=== PATIENT | male | born 1990 | race Caucasian/White ===

== ENCOUNTER 2019-02-02 08:01 | Emergency (ER) | payer BC, OTHER ==
[2019-02-02] MEDS ORDERED: SODIUM CHLORIDE 0.9% 1000ML 1,000 ML ONE (08:04)
[2019-02-02] MEDS ORDERED: NALOXONE HCL INJ 1 MG/ML SYG ONE (08:05)
[2019-02-02] MEDS ORDERED: NALOXONE HCL INJ 1 MG/ML SYG IV ONE (08:06)
[2019-02-02] MEDS ORDERED: SODIUM CHLORIDE 0.9% 1000ML 1,000 ML IVS ONE ×3 (08:08→09:34)
[2019-02-02 08:13] VITALS: TEMP 96.8
--- NOTE | 2019-02-02 08:44 | ED.PDOC ---
History of Present Illness - General Chief Complaint: Drug or Alcohol Abuse Stated Complaint: overdose Time Seen by Provider: 02/02/19 08:06 Source: patient, family Exam Limitations: no limitations - History of Present Illness Initial Comments: THIS PATIENT HAS BEEN BATTLING DRUG ADDICTION FOR SEVERAL YEARS. HE JUST CAME OUT OF REHABILITATION. HE HAS BEEN USING METHAMPHETAMINES FOR THE PAST THREE DAYS AND WAS UNABLE TO SLEEP. HE TOOK 8 MG OF XANAX AND INJECTED HEROIN. NOW HE ARRIVES WITH MODERATE AGITATION. THE MOTHER IS AT THE BEDSIDE. Severity: moderate Worsening Factors: nothing Associated Symptoms: denies symptoms Allergies/Adverse Reactions: Allergies NO KNOWN ALLERGY Allergy (Verified 02/02/19 08:12) Home Medications: Ambulatory Orders NK 02/02/19 Review of Systems - Review of Systems Constitutional: States: other - AGITATION EENTM: States: no symptoms reported Respiratory: States: no symptoms reported Cardiology: States: no symptoms reported Gastrointestinal/Abdominal: States: no symptoms reported Genitourinary: States: no symptoms reported Musculoskeletal: States: no symptoms reported Skin: States: no symptoms reported Neurological: States: no symptoms reported Endocrine: States: no symptoms reported Hematologic/Lymphatic: States: no symptoms reported Past Medical History (General) - Patient Medical History Hx Stroke: No Hx Congestive Heart Failure: No Hx Diabetes: No - Vaccination History Hx Influenza Vaccination: No - Social History Hx Tobacco Use: Yes Family Medical History - Family History Mother Family History: Unknown Living Status: Still Living Physical Exam - Physical Exam General Appearance: Agitated, Anxious, Restless, Well Developed, Well Nourished Eye Exam: bilateral normal Ears, Nose, Throat: hearing grossly normal, normal ENT inspection Neck: non-tender, full range of motion, supple Respiratory: lungs clear, normal breath sounds, no respiratory distress, no accessory muscle use Cardiovascular/Chest: normal peripheral pulses, tachycardia Peripheral Pulses: radial,right: 2+, radial,left: 2+ Gastrointestinal/Abdominal: normal bowel sounds, non tender, soft, no organomegaly Extremity: normal range of motion, non-tender Neurologic: no motor/sensory deficits, alert Skin Exam: normal color, warm/dry Progress - Progress Progress: 02/02/19 10:10 ekg: HR OF 122, AK INTERVAL OF 114, QRS OF 98, QTC OF 456, AXES OF 67 DEGREES. IMPRESSION; SINUS RHYTHM, NO ACUTE INJURY PATTERN. THERE ARE NO PREVIOUS TRACINGS TO COMPARE WITH. 02/02/19 10:13 02/02/19 08:15 EKG STAT 02/02/19 09:20 HIV-1/2 AB W/REFLEX EIA Stat 02/02/19 09:34 Sodium Chloride 0.9% 1000ML [Ns 1000 ml] 1,000 ml IVS ONCE 02/02/19 09:45 HEPATITIS ACUTE PROFILE, ABC Stat Laboratory Results WBC 19.1 K/mm3 (4.8-10.8) H 02/02/19 08:30 RBC 5.06 M/mm3 (4.70-6.10) 02/02/19 08:30 Hgb 14.6 gm/dL (14.0-18.0) 02/02/19 08:30 Hct 44.0 % (42.0-52.0) 02/02/19 08:30 MCV 86.9 fl (80.0-94.0) 02/02/19 08:30 MCH 28.9 pg (27.0-31.0) 02/02/19 08:30 MCHC 33.2 g/dL (33.0-37.0) 02/02/19 08:30 RDW 14.5 % (11.5-14.5) 02/02/19 08:30 Plt Count 375 K/mm3 (130-400) 02/02/19 08:30 MPV 7.2 fl (7.40-10.4) L 02/02/19 08:30 Absolute Neuts (auto) 16.10 K/uL (1.8-6.8) H 02/02/19 08:30 Absolute Lymphs (auto) 1.60 K/uL (1.0-3.4) 02/02/19 08:30 Absolute Monos (auto) 1.30 K/uL (0.2-0.8) H 02/02/19 08:30 Absolute Eos (auto) 0.00 K/uL (0.0-0.4) 02/02/19 08:30 Absolute Basos (auto) 0.10 K/uL (0.0-0.1) 02/02/19 08:30 Neutrophils % 84.4 % (42.0-78.0) H 02/02/19 08:30 Lymphocytes % 8.3 % (20.0-50.0) L 02/02/19 08:30 Monocytes % 6.9 % (2.0-9.0) 02/02/19 08:30 Eosinophils % 0.0 % (1.0-5.0) L 02/02/19 08:30 Basophils % 0.4 % (0.0-2.0) 02/02/19 08:30 Sodium 138 mmol/L (135-145) 02/02/19 08:30 Potassium 4.0 mmol/L (3.6-5.0) 02/02/19 08:30 Chloride 106 mmol/L (101-111) 02/02/19 08:30 Carbon Dioxide 19 mmol/L (21-31) L 02/02/19 08:30 Anion Gap 17.0 (12-18) 02/02/19 08:30 BUN 31 mg/dL (7-18) H 02/02/19 08:30 Creatinine 2.26 mg/dL (0.6-1.3) H 02/02/19 08:30 BUN/Creatinine Ratio 13.7 (10-20) 02/02/19 08:30 Random Glucose 103 mg/dL (70-105) 02/02/19 08:30 Serum Osmolality 282.5 mOsm/L (275-295) 02/02/19 08:30 Calcium 9.5 mg/dL (8.4-10.2) 02/02/19 08:30 Total Bilirubin 1.4 mg/dL (0.2-1.0) H 02/02/19 08:30 AST 22 IU/L (10-42) 02/02/19 08:30 ALT 15 IU/L (10-60) 02/02/19 08:30 Alkaline Phosphatase 63 IU/L (42-121) 02/02/19 08:30 Troponin I < 0.02 ng/mL (0.01-0.05) 02/02/19 08:30 Serum Total Protein 8.3 gm/dL (6.4-8.2) H 02/02/19 08:30 Albumin 4.7 g/dl (3.2-5.5) 02/02/19 08:30 Globulin 3.6 gm/dL (2.3-3.5) H 02/02/19 08:30 Albumin/Globulin Ratio 1.3 (1.1-1.9) 02/02/19 08:30 Urine Color Yellow (Yellow) 02/02/19 09:30 Urine Appearance Cloudy (Clear) 02/02/19 09:30 Urine pH 5.5 (4.5-7.8) 02/02/19 09:30 Ur Specific [place] 1.025 (1.005-1.030) 02/02/19 09:30 Urine Protein 100 mg/dL H 02/02/19 09:30 Urine Glucose (UA) Negative mg/dL (Negative) 02/02/19 09:30 Urine Ketones Trace mg/dL (NEGATIVE) 02/02/19 09:30 Urine Blood Large (Negative) H 02/02/19 09:30 Urine Nitrite Negative 02/02/19 09:30 Urine Bilirubin Small (NEGATIVE) H 02/02/19 09:30 Urine Urobilinogen 0.2 mg/dL (0.2-1.0) 02/02/19 09:30 Ur Leukocyte Esterase Negative (Negative) 02/02/19 09:30 Urine RBC 30-40 /hpf H 02/02/19 09:30 Urine WBC 0-1 /hpf 02/02/19 09:30 Ur Epithelial Cells 1-3 /hpf 02/02/19 09:30 Urine Bacteria 1+ 02/02/19 09:30 Urine Opiates Screen Positive ng/mL (2000) H 02/02/19 08:06 Urine Barbiturates Negative ng/mL (200) 02/02/19 08:06 Ur Phencyclidine Scrn Negative ng/mL (25) 02/02/19 08:06 U Amphetamin/Meth Scrn Positive ng/mL (1000) H 02/02/19 08:06 U Benzodiazepines Scrn Positive ng/mL (200) H 02/02/19 08:06 U Cocaine Metab Screen Negative ng/mL (300) 02/02/19 08:06 U Cannabinoids Screen Negative ng/mL (50) 02/02/19 08:06 02/02/19 11:11 I HAVE DISCUSSED THE CASE WITH DR. LAMBERT. HE SUGGESTS TO REPEAT THE BMP AND IF THE CREATININE IS IMPROVED THEN HE CAN BE DISCHARGED FROM THE ED. THE PATIENT HAS RECEIVED THREE LTS OF FLUIDS AND IS STILL TACHYCARDIC, MAYBE A COMBINATION OF HIS DRUGS AND VOLUME DEPLETION. 02/02/19 12:15 02/02/19 08:15 EKG STAT 02/02/19 09:20 HIV-1/2 AB W/REFLEX EIA Stat 02/02/19 09:45 HEPATITIS ACUTE PROFILE, ABC Stat Laboratory Results WBC 19.1 K/mm3 (4.8-10.8) H 02/02/19 08:30 RBC 5.06 M/mm3 (4.70-6.10) 02/02/19 08:30 Hgb 14.6 gm/dL (14.0-18.0) 02/02/19 08:30 Hct 44.0 % (42.0-52.0) 02/02/19 08:30 MCV 86.9 fl (80.0-94.0) 02/02/19 08:30 MCH 28.9 pg (27.0-31.0) 02/02/19 08:30 MCHC 33.2 g/dL (33.0-37.0) 02/02/19 08:30 RDW 14.5 % (11.5-14.5) 02/02/19 08:30 Plt Count 375 K/mm3 (130-400) 02/02/19 08:30 MPV 7.2 fl (7.40-10.4) L 02/02/19 08:30 Absolute Neuts (auto) 16.10 K/uL (1.8-6.8) H 02/02/19 08:30 Absolute Lymphs (auto) 1.60 K/uL (1.0-3.4) 02/02/19 08:30 Absolute Monos (auto) 1.30 K/uL (0.2-0.8) H 02/02/19 08:30 Absolute Eos (auto) 0.00 K/uL (0.0-0.4) 02/02/19 08:30 Absolute Basos (auto) 0.10 K/uL (0.0-0.1) 02/02/19 08:30 Neutrophils % 84.4 % (42.0-78.0) H 02/02/19 08:30 Lymphocytes % 8.3 % (20.0-50.0) L 02/02/19 08:30 Monocytes % 6.9 % (2.0-9.0) 02/02/19 08:30 Eosinophils % 0.0 % (1.0-5.0) L 02/02/19 08:30 Basophils % 0.4 % (0.0-2.0) 02/02/19 08:30 Sodium 135 mmol/L (135-145) 02/02/19 11:23 Potassium 4.3 mmol/L (3.6-5.0) 02/02/19 11:23 Chloride 108 mmol/L (101-111) 02/02/19 11:23 Carbon Dioxide 19 mmol/L (21-31) L 02/02/19 11:23 Anion Gap 12.3 (12-18) 02/02/19 11:23 BUN 30 mg/dL (7-18) H 02/02/19 11:23 Creatinine 1.56 mg/dL (0.6-1.3) H D 02/02/19 11:23 BUN/Creatinine Ratio 19.2 (10-20) 02/02/19 11:23 Random Glucose 106 mg/dL (70-105) H 02/02/19 11:23 Serum Osmolality 276.7 mOsm/L (275-295) 02/02/19 11:23 Calcium 8.6 mg/dL (8.4-10.2) 02/02/19 11:23 Total Bilirubin 1.4 mg/dL (0.2-1.0) H 02/02/19 08:30 AST 22 IU/L (10-42) 02/02/19 08:30 ALT 15 IU/L (10-60) 02/02/19 08:30 Alkaline Phosphatase 63 IU/L (42-121) 02/02/19 08:30 Troponin I < 0.02 ng/mL (0.01-0.05) 02/02/19 08:30 Serum Total Protein 8.3 gm/dL (6.4-8.2) H 02/02/19 08:30 Albumin 4.7 g/dl (3.2-5.5) 02/02/19 08:30 Globulin 3.6 gm/dL (2.3-3.5) H 02/02/19 08:30 Albumin/Globulin Ratio 1.3 (1.1-1.9) 02/02/19 08:30 Urine Color Yellow (Yellow) 02/02/19 09:30 Urine Appearance Cloudy (Clear) 02/02/19 09:30 Urine pH 5.5 (4.5-7.8) 02/02/19 09:30 Ur Specific [place] 1.025 (1.005-1.030) 02/02/19 09:30 Urine Protein 100 mg/dL H 02/02/19 09:30 Urine Glucose (UA) Negative mg/dL (Negative) 02/02/19 09:30 Urine Ketones Trace mg/dL (NEGATIVE) 02/02/19 09:30 Urine Blood Large (Negative) H 02/02/19 09:30 Urine Nitrite Negative 02/02/19 09:30 Urine Bilirubin Small (NEGATIVE) H 02/02/19 09:30 Urine Urobilinogen 0.2 mg/dL (0.2-1.0) 02/02/19 09:30 Ur Leukocyte Esterase Negative (Negative) 02/02/19 09:30 Urine RBC 30-40 /hpf H 02/02/19 09:30 Urine WBC 0-1 /hpf 02/02/19 09:30 Ur Epithelial Cells 1-3 /hpf 02/02/19 09:30 Urine Bacteria 1+ 02/02/19 09:30 Urine Opiates Screen Positive ng/mL (2000) H 02/02/19 08:06 Urine Barbiturates Negative ng/mL (200) 02/02/19 08:06 Ur Phencyclidine Scrn Negative ng/mL (25) 02/02/19 08:06 U Amphetamin/Meth Scrn Positive ng/mL (1000) H 02/02/19 08:06 U Benzodiazepines Scrn Positive ng/mL (200) H 02/02/19 08:06 U Cocaine Metab Screen Negative ng/mL (300) 02/02/19 08:06 U Cannabinoids Screen Negative ng/mL (50) 02/02/19 08:06 REPEAT KIDNEY FUNCTION TEST: REVEAL TO BE IMPROVED. THE CREATININE NOW IS 1.56 02/02/19 13:41 Dr. TURNER PAID A VISIT TO THE ED AND SPOKE TO THE FAMILY AND THE PATIENT. THE PATIENT WILL BE DISCHARGED. THE FAMILY ARE PLANNING ON CALLING THE LOCAL POLICE AND HOPEFULLY THE PATIENT WILL BE PLACED IN CUSTODY OF THE POLICE. Departure - Departure Clinical Impression: Substance abuse, Volume depletion Time of Disposition: 13:44 Disposition: Discharge to Home or Self Care Departure Forms: ED Discharge - Pt. Copy, Patient Portal Self Enrollment Instructions: DI for Drug Overdose in Adults Referrals: Dominic Turner MD [Primary Care Provider] - 1-2 Weeks Home Medications: Ambulatory Orders NK 02/02/19
[2019-02-02] MEDS ORDERED: IBUPROFEN 200 MG TAB ONE (09:12)
[2019-02-02] MEDS ORDERED: IBUPROFEN 200 MG TAB PO ONE (09:23)
[2019-02-02 14:55] VITALS: BP 125/60; O2SAT 99
== END 2019-02-02 13:52 | disposition home or self-care (01) ==
LOC: ER 08:01
DX: F15.10 Other stimulant abuse, uncomplicated (principal); F11.10 Opioid abuse, uncomplicated; F13.10 Sedative, hypnotic or anxiolytic abuse, uncomplicated; E86.9 Volume depletion, unspecified; R00.0 Tachycardia, unspecified; Z87.891 Personal history of nicotine dependence
CPT/HCPCS: 36415; 80048; 80053; 80074; 80307; 81001; 84484; 85025; 86701; 93005; J7030